=== PATIENT | male | born 1935 | race Caucasian/White ===

== ENCOUNTER 2017-11-02 20:30 | Emergency (ER) | payer MEDICARE, MEDICAID ==
[~2017-11-02] VITALS: Ht 177.8 cm; Wt 79.7 kg
[2017-11-02] MEDS ORDERED: SODIUM CHLORIDE FLUSH 10ML SYR IVF ONE (21:30)
[2017-11-02 21:37] LABS: BASOPHILS # (AUTO) 0.12 x10^3/uL (0-0.1); BASOPHILS % (AUTO) 1 % (0-1); EOSINOPHILS # (AUTO) 0.07 x10^3/uL (0-0.4); EOSINOPHILS % (AUTO) 1 % (1-7); LYMPHOCYTES # (AUTO) 1.09 x10^3/uL (1-3.4); LYMPHOCYTES % (AUTO) 10 % (22-44); MD NO; MEAN CORPUSCULAR HEMOGLOBIN 33.7 pg (27.5-34.5); MEAN CORPUSCULAR HGB CONC 33.8 g/dL (33.2-36.2); MEAN CORPUSCULAR VOLUME 99.6 fL (81-97); MEAN PLATELET VOLUME 8.4 fL (7.4-10.4); MONOCYTES % (AUTO) 9 % (2-9); NEUTROPHILS # (AUTO) 8.35 x10^3/uL (1.8-6.8); NEUTROPHILS % (AUTO) 79 % (42-75); PLATELET COUNT 254 x10^3/uL (130-400); RED BLOOD COUNT 3.96 x10^6/uL (4.38-5.82); RED CELL DISTRIBUTION WIDTH 14.6 % (9.4-14.8)
[2017-11-02 21:43] LABS: INTERNATIONAL NORMALIZED RATIO 1.03 (0.93-1.1); PROTHROMBIN TIME 10.7 Seconds (9.6-11.5)
[2017-11-02 21:46] LABS: ALANINE AMINOTRANSFERASE 21 U/L (12-78); ALBUMIN 3.9 g/dL (3.4-5.0); ANION GAP 7 mmol/L (5-15); CALCIUM 9.6 mg/dL (8.5-10.1); CHLORIDE 111 mmol/L (98-107); CREATININE 1.07 mg/dL (0.7-1.3)
[2017-11-02 21:48] LABS: ALKALINE PHOSPHATASE 92 U/L (45-117)
[2017-11-02 21:49] LABS: TROPONIN I < 0.015 ng/mL (0.000-0.045)
[2017-11-02 23:27] LABS: MICROSCOPIC INDICATED
[2017-11-02 23:28] LABS: CULTURE INDICATED? YES
[2017-11-03] MEDS ORDERED: OMNIPAQUE 350 MG/ML, 100ML BOTTLE ONE (00:01)
[2017-11-03 00:20] VITALS: BP 131/86
== END 2017-11-03 01:34 | disposition home or self-care (01) ==
LOC: ED 22:43
DX: R10.84 Generalized abdominal pain (principal); R41.82 Altered mental status, unspecified; R62.7 Adult failure to thrive; I48.91 Unspecified atrial fibrillation
CPT/HCPCS: 36415; 70450; 71045; 74177; 80053; 81001; 83690; 84484; 85025; 85610; 85730; 87086; 93005; 99285; Q9967

== ENCOUNTER 2017-12-15 13:40 | Inpatient (IN) | payer MEDICARE, MEDICAID ==
[~2017-12-15] VITALS: Ht 180.3 cm; Wt 75.5 kg
[2017-12-15] MEDS ORDERED: SODIUM CHLORIDE 0.9% 1,000 ML IV ONE (13:43)
[2017-12-15] MEDS ORDERED: SODIUM CHLORIDE FLUSH 10ML SYR IVF ONE (14:00)
[2017-12-15 14:09] LABS: BASOPHILS # (AUTO) 0.04 x10^3/uL (0-0.1); BASOPHILS % (AUTO) 1 % (0-1); EOSINOPHILS # (AUTO) 0.06 x10^3/uL (0-0.4); EOSINOPHILS % (AUTO) 1 % (1-7); LYMPHOCYTES # (AUTO) 1.03 x10^3/uL (1-3.4); LYMPHOCYTES % (AUTO) 15 % (22-44); MD NO; MEAN CORPUSCULAR HEMOGLOBIN 33.1 pg (27.5-34.5); MEAN CORPUSCULAR HGB CONC 33.3 g/dL (33.2-36.2); MEAN CORPUSCULAR VOLUME 99.2 fL (81-97); MEAN PLATELET VOLUME 8.6 fL (7.4-10.4); MONOCYTES % (AUTO) 7 % (2-9); NEUTROPHILS # (AUTO) 5.36 x10^3/uL (1.8-6.8); NEUTROPHILS % (AUTO) 77 % (42-75); PLATELET COUNT 195 x10^3/uL (130-400); RED CELL DISTRIBUTION WIDTH 13.2 % (9.4-14.8)
[2017-12-15 14:19] LABS: INTERNATIONAL NORMALIZED RATIO 1.11 (0.93-1.1); PROTHROMBIN TIME 11.4 Seconds (9.6-11.5)
[2017-12-15 14:22] LABS: ALANINE AMINOTRANSFERASE 23 U/L (12-78); ALBUMIN 3.7 g/dL (3.4-5.0); ANION GAP 12 mmol/L (5-15); CHLORIDE 109 mmol/L (98-107); CREATININE 1.13 mg/dL (0.7-1.3)
[2017-12-15 14:49] LABS: ALKALINE PHOSPHATASE 86 U/L (45-117); BILIRUBIN,TOTAL 1.2 mg/dL (0.2-1.0); TOTAL PROTEIN 7.5 g/dL (6.4-8.2)
[2017-12-15 17:03] VITALS: BP 138/83
[2017-12-15 19:08] VITALS: BP 130/96
[2017-12-16 01:25] VITALS: BP 95/69
[2017-12-16 01:58] LABS: CULTURE INDICATED? YES; MICROSCOPIC INDICATED
[2017-12-16] MEDS ORDERED: CEFTRIAXONE 1,000 MG in SODIUM CHLORIDE 0.9% 50 ML IV SCH (06:00)
[2017-12-16] MEDS: SODIUM CHLORIDE 0.9% 1,000 ML IV SCH ×2 (06:07→16:43)
[2017-12-16 06:35] LABS: BASOPHILS # (AUTO) 0.04 x10^3/uL (0-0.1); BASOPHILS % (AUTO) 1 % (0-1); EOSINOPHILS # (AUTO) 0.11 x10^3/uL (0-0.4); EOSINOPHILS % (AUTO) 2 % (1-7); LYMPHOCYTES % (AUTO) 22 % (22-44); MD NO; MEAN CORPUSCULAR HEMOGLOBIN 33.5 pg (27.5-34.5); MEAN CORPUSCULAR HGB CONC 34.2 g/dL (33.2-36.2); MEAN CORPUSCULAR VOLUME 98.2 fL (81-97); MEAN PLATELET VOLUME 8.6 fL (7.4-10.4); MONOCYTES # (AUTO) 0.65 x10^3/uL (0.2-0.8); MONOCYTES % (AUTO) 11 % (2-9); NEUTROPHILS # (AUTO) 3.72 x10^3/uL (1.8-6.8); NEUTROPHILS % (AUTO) 64 % (42-75); PLATELET COUNT 184 x10^3/uL (130-400); RED CELL DISTRIBUTION WIDTH 13.2 % (9.4-14.8)
[2017-12-16 06:44] VITALS: BP 118/76
[2017-12-16 06:46] LABS: ANION GAP 7 mmol/L (5-15); CALCIUM 8.3 mg/dL (8.5-10.1); CHLORIDE 105 mmol/L (98-107)
[2017-12-16 07:46] VITALS: BP 124/83
[2017-12-16] MEDS ORDERED: LABETALOL 5MG/ML, 20ML IVPush PRN (08:30)
[2017-12-16] MEDS ORDERED: ACETAMINOPHEN 325 MG TABLET PO PRN (08:30)
[2017-12-16 12:55] VITALS: BP 101/66
[2017-12-16 19:01] VITALS: BP 146/85
[2017-12-17 01:53] VITALS: BP 132/81
[2017-12-17] MEDS: SODIUM CHLORIDE 0.9% 1,000 ML IV SCH (02:20)
[2017-12-17 06:44] VITALS: BP 128/78
[2017-12-17 09:13] LABS: BASOPHILS # (AUTO) 0.04 x10^3/uL (0-0.1); BASOPHILS % (AUTO) 1 % (0-1); EOSINOPHILS # (AUTO) 0.13 x10^3/uL (0-0.4); EOSINOPHILS % (AUTO) 3 % (1-7); LYMPHOCYTES # (AUTO) 1.02 x10^3/uL (1-3.4); LYMPHOCYTES % (AUTO) 20 % (22-44); MD NO; MEAN CORPUSCULAR HEMOGLOBIN 33.5 pg (27.5-34.5); MEAN CORPUSCULAR HGB CONC 33.6 g/dL (33.2-36.2); MEAN CORPUSCULAR VOLUME 99.6 fL (81-97); MEAN PLATELET VOLUME 8.8 fL (7.4-10.4); MONOCYTES # (AUTO) 0.42 x10^3/uL (0.2-0.8); MONOCYTES % (AUTO) 8 % (2-9); NEUTROPHILS # (AUTO) 3.52 x10^3/uL (1.8-6.8); NEUTROPHILS % (AUTO) 69 % (42-75); PLATELET COUNT 173 x10^3/uL (130-400); RED BLOOD COUNT 3.85 x10^6/uL (4.38-5.82); RED CELL DISTRIBUTION WIDTH 13.6 % (9.4-14.8)
[2017-12-17 09:16] LABS: ANION GAP 7 mmol/L (5-15); CALCIUM 8.2 mg/dL (8.5-10.1); CHLORIDE 110 mmol/L (98-107); CREATININE 0.76 mg/dL (0.7-1.3)
[2017-12-17 12:06] VITALS: BP 125/72
[2017-12-17 18:45] VITALS: BP 117/74
[2017-12-18 02:35] VITALS: BP 117/68
[2017-12-18 07:54] VITALS: BP 132/87
[2017-12-18 13:40] VITALS: BP 104/67
[2017-12-18 18:30] VITALS: BP 117/78
[2017-12-19 01:12] VITALS: BP 117/69
[2017-12-19 06:36] VITALS: BP 131/68
[2017-12-19 13:48] VITALS: BP 96/55
[2017-12-19 18:33] VITALS: BP 106/69
[2017-12-20 01:04] VITALS: BP 116/68
[2017-12-20 06:46] VITALS: BP 138/60
[2017-12-20 12:34] VITALS: BP 128/66
[2017-12-20 14:11] VITALS: BP_SYST 101; BP_SYST 109; BP_SYST 125; BP_DIAS 66; BP_DIAS 68; BP_DIAS 78
[2017-12-20 20:46] VITALS: BP 105/59
[2017-12-21] VITALS (9 sets, daily range): BP systolic 95–134; BP diastolic 56–81
[2017-12-21] MEDS ORDERED: CEFAZOLIN PMX 1GM/50ML 50 ML IVPB ONE (12:30)
[2017-12-21] MEDS: SODIUM CHLORIDE 0.9% 1,000 ML IV SCH ×2 (14:05→22:09)
[2017-12-22 00:24] VITALS: BP 120/71
[2017-12-22 05:55] LABS: INTERNATIONAL NORMALIZED RATIO 1.01 (0.93-1.1); PROTHROMBIN TIME 10.4 Seconds (9.6-11.5)
[2017-12-22 05:58] LABS: BASOPHILS # (AUTO) 0.05 x10^3/uL (0-0.1); BASOPHILS % (AUTO) 1 % (0-1); EOSINOPHILS # (AUTO) 0.21 x10^3/uL (0-0.4); EOSINOPHILS % (AUTO) 4 % (1-7); LYMPHOCYTES # (AUTO) 1.61 x10^3/uL (1-3.4); LYMPHOCYTES % (AUTO) 27 % (22-44); MD NO; MEAN CORPUSCULAR HEMOGLOBIN 32.7 pg (27.5-34.5); MEAN CORPUSCULAR HGB CONC 32.8 g/dL (33.2-36.2); MEAN CORPUSCULAR VOLUME 99.5 fL (81-97); MONOCYTES # (AUTO) 0.46 x10^3/uL (0.2-0.8); MONOCYTES % (AUTO) 8 % (2-9); NEUTROPHILS # (AUTO) 3.53 x10^3/uL (1.8-6.8); NEUTROPHILS % (AUTO) 60 % (42-75); PLATELET COUNT 203 x10^3/uL (130-400); RED BLOOD COUNT 3.98 x10^6/uL (4.38-5.82); RED CELL DISTRIBUTION WIDTH 13.7 % (9.4-14.8)
[2017-12-22 06:03] LABS: CHLORIDE 110 mmol/L (98-107)
[2017-12-22 06:08] LABS: ANION GAP 8 mmol/L (5-15); CALCIUM 8.6 mg/dL (8.5-10.1); CREATININE 0.71 mg/dL (0.7-1.3)
[2017-12-22 07:17] VITALS: BP 114/63
[2017-12-22] MEDS: SODIUM CHLORIDE 0.9% 1,000 ML IV SCH ×2 (08:36→16:36)
[2017-12-22 14:03] VITALS: BP 127/64
[2017-12-22 20:00] VITALS: BP 152/80
[2017-12-23 00:43] VITALS: BP 137/78
[2017-12-23] MEDS: SODIUM CHLORIDE 0.9% 1,000 ML IV SCH ×3 (04:07→21:08)
[2017-12-23 06:59] VITALS: BP 154/93
[2017-12-23 13:20] VITALS: BP 85/53
[2017-12-23 17:03] VITALS: BP 147/77
[2017-12-23 20:00] VITALS: BP 109/67
[2017-12-24 02:00] VITALS: BP 148/76
[2017-12-24] MEDS: SODIUM CHLORIDE 0.9% 1,000 ML IV SCH (04:17)
[2017-12-24 07:48] VITALS: BP 134/76
[2017-12-24] MEDS: APIXABAN 5 MG TABLET PO SCH ×2 (08:26→20:19)
[2017-12-24 14:04] VITALS: BP 108/68
[2017-12-24 19:44] VITALS: BP 115/70
[2017-12-25 01:00] VITALS: BP 131/75
[2017-12-25 07:48] VITALS: BP 134/78
[2017-12-25] MEDS: APIXABAN 5 MG TABLET PO SCH ×2 (09:17→19:54)
[2017-12-25 13:16] VITALS: BP 95/54
[2017-12-25 19:19] VITALS: BP 103/63
[2017-12-26 01:26] VITALS: BP 110/73
[2017-12-26 06:51] VITALS: BP 123/62
[2017-12-26] MEDS: APIXABAN 5 MG TABLET PO SCH ×2 (09:52→22:08)
[2017-12-26 11:28] LABS: TROPONIN I < 0.015 ng/mL (0.000-0.045)
[2017-12-26 13:59] VITALS: BP 119/69
[2017-12-26 17:10] LABS: TROPONIN I < 0.015 ng/mL (0.000-0.045)
[2017-12-26 19:21] VITALS: BP 133/91
[2017-12-26 23:13] LABS: TROPONIN I < 0.015 ng/mL (0.000-0.045)
[2017-12-27 02:14] VITALS: BP 145/85
[2017-12-27 07:42] VITALS: BP 118/72
[2017-12-27] MEDS: APIXABAN 5 MG TABLET PO SCH ×2 (09:40→20:06)
[2017-12-27 12:31] VITALS: BP 101/62
[2017-12-27 20:13] VITALS: BP 116/66
[2017-12-28 02:00] VITALS: BP 110/68
[2017-12-28 06:35] VITALS: BP 136/87
[2017-12-28] MEDS: APIXABAN 5 MG TABLET PO SCH ×2 (09:14→20:33)
[2017-12-28 13:15] VITALS: BP 101/68
[2017-12-28 19:34] VITALS: BP 109/67
[2017-12-29 01:34] VITALS: BP 99/66
[2017-12-29 06:43] VITALS: BP 105/63
[2017-12-29] MEDS: APIXABAN 5 MG TABLET PO SCH ×2 (09:10→21:13)
[2017-12-29 12:46] VITALS: BP 104/67
[2017-12-29 19:12] VITALS: BP 120/79
[2017-12-30 01:40] VITALS: BP 117/68
[2017-12-30 06:27] VITALS: BP 121/60
[2017-12-30] MEDS: APIXABAN 5 MG TABLET PO SCH ×2 (09:10→21:23)
[2017-12-30 12:27] VITALS: BP 96/61
[2017-12-30 19:57] VITALS: BP 109/60
[2017-12-31 02:25] VITALS: BP 120/73
[2017-12-31 09:35] VITALS: BP 112/76
[2017-12-31] MEDS: APIXABAN 5 MG TABLET PO SCH ×2 (10:18→20:03)
[2017-12-31 13:55] VITALS: BP 109/67
[2017-12-31 18:49] VITALS: BP 101/59
[2018-01-01 02:24] VITALS: BP 109/72
[2018-01-01 09:17] VITALS: BP 119/85
[2018-01-01] MEDS: APIXABAN 5 MG TABLET PO SCH ×2 (10:20→20:28)
[2018-01-01 12:53] VITALS: BP 106/63
[2018-01-01] MEDS ORDERED: PNEUMOCOCCAL 23 VACCINE IM-VACC ONE (14:30)
[2018-01-01 18:50] VITALS: BP 123/80
[2018-01-02 01:05] VITALS: BP 120/59
[2018-01-02 06:45] VITALS: BP 99/60
[2018-01-02] MEDS: APIXABAN 5 MG TABLET PO SCH ×2 (11:33→20:39)
[2018-01-02 13:24] VITALS: BP 102/71
[2018-01-02 18:59] VITALS: BP 117/63
[2018-01-03 02:39] VITALS: BP 125/61
[2018-01-03 07:05] VITALS: BP 123/73
[2018-01-03] MEDS: POLYETHYLENE GLYCOL 17 GM PACKET PO SCH (09:00)
[2018-01-03] MEDS: BISACODYL 5 MG EC TABLET PO SCH (09:00)
[2018-01-03] MEDS: APIXABAN 5 MG TABLET PO SCH ×2 (09:00→21:14)
[2018-01-03 13:58] VITALS: BP 99/62
[2018-01-03 20:00] VITALS: BP 137/83
[2018-01-04 02:00] VITALS: BP 99/56
[2018-01-04 07:30] VITALS: BP 109/62
[2018-01-04] MEDS: BISACODYL 5 MG EC TABLET PO SCH (08:16)
[2018-01-04] MEDS: APIXABAN 5 MG TABLET PO SCH ×2 (08:16→20:02)
[2018-01-04] MEDS: POLYETHYLENE GLYCOL 17 GM PACKET PO SCH (08:17)
[2018-01-04 13:12] VITALS: BP 95/65
[2018-01-04 20:00] VITALS: BP 104/74
[2018-01-05 01:12] VITALS: BP 109/70
[2018-01-05 06:44] VITALS: BP 103/60
[2018-01-05] MEDS: BISACODYL 5 MG EC TABLET PO SCH (10:21)
[2018-01-05] MEDS: APIXABAN 5 MG TABLET PO SCH ×2 (10:21→19:59)
[2018-01-05] MEDS: POLYETHYLENE GLYCOL 17 GM PACKET PO SCH (10:21)
[2018-01-05 12:34] VITALS: BP 106/66
[2018-01-05 20:00] VITALS: BP 135/84
[2018-01-06 02:00] VITALS: BP 100/56
[2018-01-06 07:30] VITALS: BP 118/73
[2018-01-06] MEDS: BISACODYL 5 MG EC TABLET PO SCH (09:00)
[2018-01-06] MEDS: POLYETHYLENE GLYCOL 17 GM PACKET PO SCH (09:00)
[2018-01-06] MEDS: APIXABAN 5 MG TABLET PO SCH ×2 (10:14→20:00)
[2018-01-06 12:18] VITALS: BP 126/65
[2018-01-06 20:00] VITALS: BP 102/58
[2018-01-07 01:53] VITALS: BP 122/79
[2018-01-07 07:14] VITALS: BP 126/72
[2018-01-07] MEDS: POLYETHYLENE GLYCOL 17 GM PACKET PO SCH (09:00)
[2018-01-07] MEDS: APIXABAN 5 MG TABLET PO SCH ×2 (10:41→20:21)
[2018-01-07] MEDS: BISACODYL 5 MG EC TABLET PO SCH (10:44)
[2018-01-07 12:20] VITALS: BP 127/80
[2018-01-07 18:19] VITALS: BP 122/73
[2018-01-08 01:07] VITALS: BP 124/80
[2018-01-08 07:53] VITALS: BP 120/72
[2018-01-08] MEDS: BISACODYL 5 MG EC TABLET PO SCH (09:00)
[2018-01-08] MEDS: POLYETHYLENE GLYCOL 17 GM PACKET PO SCH (10:27)
[2018-01-08] MEDS: APIXABAN 5 MG TABLET PO SCH ×2 (10:27→20:09)
[2018-01-08 15:15] VITALS: BP 117/73
[2018-01-08 18:39] VITALS: BP 97/55
[2018-01-09 00:54] VITALS: BP 105/64
[2018-01-09 08:00] VITALS: BP 112/58
[2018-01-09] MEDS: BISACODYL 5 MG EC TABLET PO SCH (09:00)
[2018-01-09] MEDS: POLYETHYLENE GLYCOL 17 GM PACKET PO SCH (09:00)
[2018-01-09] MEDS: APIXABAN 5 MG TABLET PO SCH ×2 (10:39→21:40)
[2018-01-09 13:15] VITALS: BP 105/67
[2018-01-09 19:02] VITALS: BP 101/55
[2018-01-10 02:36] VITALS: BP 128/68
[2018-01-10 07:02] VITALS: BP 107/68
[2018-01-10] MEDS: BISACODYL 5 MG EC TABLET PO SCH (09:00)
[2018-01-10] MEDS: POLYETHYLENE GLYCOL 17 GM PACKET PO SCH (09:00)
[2018-01-10] MEDS: APIXABAN 5 MG TABLET PO SCH ×2 (10:23→21:50)
[2018-01-10 13:45] VITALS: BP 102/61
[2018-01-10 20:00] VITALS: BP 127/78
[2018-01-11 01:40] VITALS: BP 125/78
[2018-01-11 08:32] VITALS: BP 93/46
[2018-01-11] MEDS: POLYETHYLENE GLYCOL 17 GM PACKET PO SCH (09:00)
[2018-01-11] MEDS: BISACODYL 5 MG EC TABLET PO SCH (09:27)
[2018-01-11] MEDS: APIXABAN 5 MG TABLET PO SCH ×2 (09:27→21:35)
[2018-01-11 12:50] VITALS: BP 110/66
[2018-01-11 19:15] VITALS: BP 120/75
[2018-01-12 00:09] VITALS: BP 118/69
[2018-01-12 00:10] VITALS: BP 143/82
[2018-01-12 00:13] VITALS: BP 118/69
[2018-01-12 07:42] VITALS: BP 121/76
[2018-01-12] MEDS: APIXABAN 5 MG TABLET PO SCH ×2 (09:22→20:38)
[2018-01-12] MEDS: POLYETHYLENE GLYCOL 17 GM PACKET PO SCH (09:22)
[2018-01-12] MEDS: BISACODYL 5 MG EC TABLET PO SCH (09:22)
[2018-01-12 13:05] VITALS: BP 117/68
[2018-01-12] MEDS ORDERED: APIX5TAB PO (14:26)
[2018-01-12] MEDS ORDERED: ACET325T14 PO (14:26)
[2018-01-12] MEDS ORDERED: POLY17PO5 PO (14:31)
[2018-01-12 20:00] VITALS: BP 127/73
[2018-01-13 00:59] VITALS: BP 112/70
[2018-01-13 07:08] VITALS: BP 101/63
[2018-01-13] MEDS: APIXABAN 5 MG TABLET PO SCH (09:44)
[2018-01-13] MEDS: POLYETHYLENE GLYCOL 17 GM PACKET PO SCH (09:45)
[2018-01-13] MEDS: BISACODYL 5 MG EC TABLET PO SCH (09:45)
== END 2018-01-13 09:10 | DRG 308 ==
LOC: ED 14:14 → INTOOBSV 14:38 → EDIP 14:38 → OBSVTOIN 14:38 → 3NE 15:20 → 4WST 12-20 14:13
PROVIDERS: ADMIT Internal Medicine; ATTEND Internal Medicine
DX: I48.91 Unspecified atrial fibrillation (principal); G93.49 Other encephalopathy; D68.69 Other thrombophilia; F03.90 Unspecified dementia, unspecified severity, without behavioral disturbance, psychotic disturbance, mood disturbance, and anxiety; Z87.891 Personal history of nicotine dependence; D64.9 Anemia, unspecified; K59.00 Constipation, unspecified; Z79.01 Long term (current) use of anticoagulants
CPT/HCPCS: 36415; 71046; 80048; 80053; 80307; 81001; 82607; 83735; 84100; 84443; 84484; 85025; 85610; 87086; 90732; 93005; 93306; 99285; G0378; J0690; J0696; 92523-GN; G0515-GN; J7030